=== PATIENT | male | born 1980 | race Caucasian/White ===

== ENCOUNTER 2019-10-28 14:38 | Emergency (ER) | payer OTHER ==
[2019-10-28 15:16] VITALS: BP 126/93
--- NOTE | 2019-10-28 15:16 | UC ---
Elbow Pain - HPI Summary HPI Summary: 39yo male presenting with L elbow pain worsening x1 week. Denies known trauma or injury. Describes pain as sharp and shooting and worse with any kind of movement. Slightly better at rest but still throbs. States pain radiates down to his wrist. Notes tingling in all fingers at times. Notes decreased ROM d/t pain. Denies swelling, redness, and bruising. States he is ambidextrous. 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 Notes this has happened in the past with his right elbow and it just goes away. - History of Current Complaint Stated Complaint: LEFT ELBOW PAIN Hx Obtained From: Patient Pain Intensity: 6 Pain Scale Used: 0-10 Numeric - Allergies/Home Medications Allergies/Adverse Reactions: Allergies Allergy/AdvReac Type Severity Reaction Status Date / Time No Known Allergies Allergy Verified 10/28/19 15:06 Home Medications: Home Medications NK [No Home Medications Reported] 10/28/19 [History Confirmed 10/28/19] PMH/Surg Hx/FS Hx/Imm Hx - Surgical History Surgical History: Yes Surgery Procedure, Year, and Place: benign growth removed from groin - Family History Known Family History: Positive: Non-Contributory - Social History Alcohol Use: Rare Substance Use Type: None Smoking Status (MU): Heavy Every Day Tobacco Smoker Type: eCigarettes Amount Used/How Often: half ppd Length of Time of Smoking/Using Tobacco: 20 Have You Smoked in the Last Year: Yes - Immunization History Most Recent Tetanus Shot: 2012 Review of Systems All Other Systems Reviewed And Are Negative: No Constitutional: Positive: Negative Skin: Positive: Negative Respiratory: Positive: Negative Cardiovascular: Positive: Negative Musculoskeletal: Positive: Arthralgia - L elbow, Decreased ROM - L elbow d/t pain. Negative: Edema Neurological: Positive: Paresthesia - L fingers. Negative: Numbness Physical Exam - Summary Physical Exam Summary: Vital Signs Reviewed: Yes A+Ox3, no distress Eyes: Conjunctiva Clear ENT: Hearing grossly normal neck: supple Respiratory: Positive: No respiratory distress, No accessory muscle use Cardiovascular: skin color reflect adequate perfusion Musculoskeletal Exam: (-)TTP of L elbow, +pain with flexion and extension of L elbow, decreased strength L handgrip, no edema, no erythema or ecchymosis, radial pulses 2+, sensation grossly intact Neurological: Positive: Alert, ambulatory without difficulty Psychological: Positive: age appropriate behavior Skin: Positive: no rash, no erythema, no ecchymosis Vital Signs: Initial Vital Signs Temp 98.9 F 10/28/19 15:07 Pulse 70 10/28/19 15:07 Resp 18 10/28/19 15:07 BP 126/93 10/28/19 15:07 Pulse Ox 100 10/28/19 15:07 Diagnostics - Radiology L elbow Radiology Interpretation Completed By: Radiologist Summary of Radiographic Findings: IMPRESSION: NO ACUTE OSSEOUS INJURY. IF SYMPTOMS PERSIST, RECOMMEND REPEAT IMAGING. Elbow Pain Course/Dx - Course Course Of Treatment: Negatvie radiographs. Discussed tendonitis with patient and educated on symptom relief. Instructed to continue with RICE and use of NSAIDs. Instructed to follow up with ortho if symptoms worsen or persist. Patient voiced understanding and agreed with treatment plan. - Differential Dx/Diagnosis Provider Diagnosis: Tendinitis of left elbow Discharge ED - Sign-Out/Discharge Documenting (check all that apply): Patient Departure All imaging exams completed and their final reports reviewed: Yes - Discharge Plan Condition: Stable Disposition: HOME Patient Education Materials: Tendinitis (ED) Referrals: Harmony Cardenas PA [Primary Care Provider] - If Needed [facility] [Outside] - If Needed Additional Instructions: Your radiographs were normal today. Rest, ice, elevate, and continue to use your elbow brace to help alleviate pain. Use ibuprofen as directed for pain relief. Refrain from strenuous physical activity until pain has fully resolved. Follow up with the orthopedic referral listed below if symptoms worsen or do not improve within 2-3 weeks. - Billing Disposition and Condition Condition: STABLE Disposition: Home - Attestation Statements Provider Attestation: I was available for consult. This patient was seen by the JASEN. The patient was not presented to, seen by, or examined by me. -Sj
== END 2019-10-28 16:15 | disposition home or self-care (01) ==
LOC: UCCORT 14:38
DX: M77.9 Enthesopathy, unspecified (principal); R20.2 Paresthesia of skin; F17.290 Nicotine dependence, other tobacco product, uncomplicated
CPT/HCPCS: 99201; G0463